=== PATIENT | male | born 1945 | race Caucasian/White ===

== ENCOUNTER 2022-12-14 10:33 | Emergency (ER) | payer MEDICARE, BC, SELFPAY ==
[2022-12-14 10:43] VITALS: BP 197/82; PULSE 54; RESP 16; TEMP 36.8; O2SAT 98; BMI 31.9
[2022-12-14 11:30] VITALS: BP 177/94; PULSE 53; RESP 16; O2SAT 100
--- NOTE | 2022-12-14 11:39 | ED.GENADULT ---
HPI - General Adult General Chief complaint: Hypertension Stated complaint: High BP Time Seen by Provider: 12/14/22 11:13 Source: patient Mode of arrival: ambulatory Limitations: no limitations History of Present Illness HPI narrative: 76-year-old male coming in today at the advice of clinic triage because of elevated blood pressure. The patient states that he takes his blood pressures every morning and they are usually in the 140s to 150 systolic. In the last 3 days they have been increasing into the 160s and 170s systolic. He denies headache, blurry vision, chest pain or shortness of breath. He denies any changes in his sleeping patterns, no dietary changes or stress. He does take metoprolol 25 mg once daily. He does have a documented history of hypertension. He states that he has tried other medications in the past which caused headaches, unsure which medications those were. He does have a follow-up appointment already scheduled with his primary care for his annual exam in 2 weeks. Upon arrival his blood pressure today is elevated at 197 over 82, repeat blood pressure was 177 systolic. Patient denies tobacco use. Related Data Previous Rx's Medication Instructions Recorded hydrochlorothiazide 12.5 mg capsule 12.5 mg PO DAILY #14 caps 12/14/22 hydrochlorothiazide 12.5 mg capsule 12.5 mg PO DAILY #14 caps 12/14/22 Review of Systems Status of ROS: Reports: 10 or more systems reviewed and unremarkable except as noted in History and below PFSH [facility] Social History Smoking Status: Former smoker How often do you have a drink containing alcohol: never AUDIT-C Alcohol total score: 0 Non-prescribed substance use: denies use Exam Narrative: Exam Narrative: Well-nourished well-developed patient in no acute distress. Alert and oriented. Answers questions appropriately. Mood and affect are appropriate. Thoughts are goal oriented and rational. No tangential or magical thinking noted. Patient speaks in full sentences without needing to catch his breath. HEENT: Normocephalic atraumatic. Pupils are equally round reactive to light. Extraocular muscles are intact. Conjunctivae are moist without any icterus noted. Moist mucous membranes. Posterior pharynx is normal. Neck is soft . Cardiovascular: Heart is regular rate and rhythm S1 and S2 are present without any murmurs. Lungs: Clear to auscultation bilaterally no wheezes rhonchi or rales are appreciated. Patient takes deep breaths without any discomfort. Abdomen: Soft and nontender nondistended with normal bowel sounds. Protuberant. No guarding or rebound. Extremities: Bilateral lower extremities are without edema. Skin: Well perfused without any obvious rashes. Const: Vital Signs, click to edit/add: Vital Signs - 24 hr 12/14/22 10:43 12/14/22 11:30 Temperature 98.3 F Pulse Rate [Pulse Oximeter] 54 L 53 L Respiratory Rate 16 16 Blood Pressure [Ri ght Upper Arm] 197/82 H 177/94 H Pulse Oximetry 98 100 Oxygen Delivery Me thod Room Air Room Air Course Vital Signs Vital signs: Initial Vital Signs Temperature 98.3 F 12/14/22 10:43 Temperature Source Tympanic 12/14/22 10:43 Pulse Rate 54 L 12/14/22 10:43 Pulse Rhythm Regular 12/14/22 10:43 Respiratory Rate 16 12/14/22 10:43 Blood Pressure 197/82 H 12/14/22 10:43 Blood Pressure Mean 120 12/14/22 10:43 Blood Pressure Position Sitting 12/14/22 10:43 Pulse Oximetry 98 12/14/22 10:43 Oxygen Delivery Method Room Air 12/14/22 10:43 Vital Signs Temperature 98.3 F 12/14/22 10:43 Pulse Rate 54 L 12/14/22 10:43 Respiratory Rate 16 12/14/22 10:43 Blood Pressure 197/82 H 12/14/22 10:43 Pulse Oximetry 98 12/14/22 10:43 Oxygen Delivery Method Room Air 12/14/22 10:43 Temperature 98.3 F 12/14/22 10:43 Pulse Rate 53 L 12/14/22 11:30 Respiratory Rate 16 12/14/22 11:30 Blood Pressure 177/94 H 12/14/22 11:30 Pulse Oximetry 100 12/14/22 11:30 Oxygen Delivery Method Room Air 12/14/22 11:30 Medical Decision Making MDM Narrative Medical decision making narrative: 76-year-old male with hypertension, elevated readings for the last 3 days on 4 separate occasions. We discussed he is to have a discussion with his primary care provider about next steps but patient is quite concerned about going home without a plan at this time. Therefore we discussed starting him on hydrochlorothiazide, patient is unsure if he has had this medication in the past. Given that he has an appointment in 2 weeks I feel like that is an acceptable plan at this time. He understands that if he starts to have any symptoms including headache, chest pain, shortness of breath, nausea or vomiting, abdominal pain he should return to the ER. Patient was agreeable with this plan and had no other questions. Discharge Plan Discharge Clinical Impression: Hypertension Patient Disposition: Home, Self-Care Condition: Stable Additional Instructions: Start hydrochlorothiazide daily, continue daily metoprolol. Follow-up with your primary care provider in 2 weeks. Return to the ER if you develop any chest pain, shortness of breath, dizziness or significant headache. Prescriptions: New hydrochlorothiazide 12.5 mg capsule 12.5 mg PO DAILY Qty: 14 0RF hydrochlorothiazide 12.5 mg capsule 12.5 mg PO DAILY Qty: 14 0RF Stand Alone Forms: [employer] Info Instructions
== END 2022-12-14 12:21 | disposition home or self-care (01) ==
PROVIDERS: Emergency Provider Family Medicine; PCP Family Medicine
DX: I10 Essential (primary) hypertension (principal)
CPT/HCPCS: 99283